=== PATIENT | male | born 1985 | race Two or more races ===

== ENCOUNTER 2020-08-12 15:26 | Outpatient (CLI) | payer BC, SELFPAY ==
[2020-08-12 16:02] LABS: Basophils Percent Auto 0.3 % (0.2-1.2); Eosinophils Absolute Auto 0.2 K/mm3 (0-0.3); Eosinophils Percent Auto 2.5 % (0-4.4); Hematocrit 42.2 % (42.0-52.0); Hemoglobin 14.4 g/dL (14.0-18.0); Immature Granulocyte Absolute 0.03 K/mm3 (0.00-0.031); Immature Granulocyte Percent A 0.5 % (0-0.5); Lymphocytes Absolute Auto 2.01 K/mm3 (0.9-3.2); Lymphocytes Percent Auto 31.3 % (18.3-44.2); Mean Corpuscular HGB Conc 34.1 g/dl (32-36); Mean Corpuscular Hemoglobin 29.6 pg (26-34); Mean Corpuscular Volume 86.7 fl (80-100); Mean Platelet Volume 8.9 fl (7.4-10.4); Monocytes Absolute Auto 0.6 K/mm3 (0.1-0.6); Monocytes Percent Auto 9.8 % (2.6-8.5); Neutrophils Absolute Auto 3.6 K/mm3 (1.3-6.7); Neutrophils Percent Auto 55.6 % (45.5-73.1); Platelet Count Result 245 k/mm3 (150-375); Red Blood Count 4.87 M/mm3 (4.6-6.20); Red Cell Distribution Width 13.6 % (11.5-14.5); White Blood Count 6.4 K/mm3 (4.5-10.0)
[2020-08-12 16:08] LABS: Add Urine Microscopic? YES; Appearance Urine Clear (Clear); Bilirubin Urine Negative (Negative); Blood Urine Negative (Negative); Color Urine Yellow (Yellow); Glucose Urine UA Negative (Negative); Ketones Urine Negative (Negative); Leukocyte Esterase Ur Negative LEU/UL (NEGATIVE); Mucus Urine Rare /lpf; Nitrate Urine Negative (Negative); Protein Urine Negative (Negative); RBC Urine 0-2 /hpf (0-2); Specific Grav Ur 1.016 (1.001-1.035); Squamous Epithelial Cell Urine Rare /hpf (Few); WBC Urine 0-3 /hpf (0-3)
[2020-08-12 16:18] LABS: Alanine Aminotransferase 27 U/L (4-50); Albumin Level 4.4 g/dL (3.5-5.1); Alkaline Phosphatase 55 U/L (38-126); Amylase 59 U/L (30-110); Anion Gap 7 mmol/L (8-16); Aspartate Amino Transferase 31 U/L (17-59); Bilirubin,Total 0.3 mg/dL (0.2-1.3); Blood Urea Nitrogen 14 mg/dL (9-20); Calcium 8.7 mg/dL (8.4-10.2); Carbon Dioxide 28 mmol/L (22-30); Chloride 103 mmol/L (98-107); Estimated Glomerular Filt Rate > 60; Glucose 84 mg/dL (75-110); Lipase 51 U/L (23-300); Sodium 138 mmol/L (137-145)
== END 2020-08-12 15:27 | disposition home or self-care (01) ==
LOC: ANHLAB 15:29
PROVIDERS: PCP Family Medicine; Visit Provider Physician Assistant
DX: R10.9 Unspecified abdominal pain (principal); R11.2 Nausea with vomiting, unspecified
CPT/HCPCS: 36415; 80053; 81001; 82150; 83690; 85025; 87086

== ENCOUNTER → 2021-03-16 14:42 | Outpatient (CLI) | payer BC, SELFPAY ==
--- NOTE | ~2021-03-16 | XR_ITS ---
XR shoulder RT min 2V 03/16/2021 15:01 INDICATION: Right shoulder pain PROCEDURE: 4 views right shoulder COMPARISON: No prior studies for comparison. FINDINGS: Fracture, dislocation or subluxation is not identified. The soft tissues appear within norm al limits. No foreign bodies are identified. IMPRESSION: 1: NO ACUTE BONE OR JOINT ABNORMALITY IDENTIFIED. Reviewed, dictated and finalized at location A.
== END ==
PROVIDERS: PCP Family Medicine; Visit Provider Physician Assistant
DX: M25.511 Pain in right shoulder (principal)
CPT/HCPCS: 73030

== ENCOUNTER 2021-04-30 13:27 | Outpatient (CLI) | payer BC, SELFPAY ==
--- NOTE | ~2021-04-30 | MR_ITS ---
EXAMINATION: MR shoulder RT wo con DATE: 04/30/2021 14:54 INDICATION: Right shoulder pain TECHNIQUE: Magnetic resonance imaging (MRI) of the right shoulder was performed without intravenous c ontrast. Sequences included axial PD-weighted FS FSE, coronal oblique PD-weighted FS FSE, coronal obl ique T2-weighted FS FSE, sagittal PD-weighted FS FSE, and sagittal T1-weighted SE. COMPARISON: None. FINDINGS: Coracoacromial arch: The acromion undersurface is flat in morphology (type I). The coracoacromial ligament is normal. Mini mal acromioclavicular osteoarthritis. Rotator cuff: Mild supraspinatus tendinopathy with small deep partial-thickness articular sided tear at the superio r facet footplate of the supraspinatus tendon which measures only 2-3 mm AP but which involves at nini st two thirds of the tendon thickness. The infraspinatus, teres minor and subscapularis tendons are n ormal. Normal rotator cuff muscle bulk and signal. Biceps tendon, glenoid labrum and glenohumeral cartilage: Long head of the biceps tendon is normal. Glenoid labrum is normal. Glenohumeral cartilage is normal. Fluid: There is virmm-mo-vyldojfg amount fluid in the long head biceps tendon sheath which is disproportiona te to the physiologic amount of fluid in the glenohumeral joint space consistent with mild bicipital tenosynovitis. No loose osteochondral bodies. Small amount of fluid in the subacromial/subdeltoid bur sa consistent with mild bursitis. Bones: Normal marrow signal with no edema, fracture or pathologic marrow replacing process. IMPRESSION: 1. . Supraspinatus tendinopathy with very small but deep bursal sided tear at the distal insertion. 2. Mild subacromial/subdeltoid bursitis. 2. Mild bicipital tenosynovitis. Reviewed, dictated and finalized at location A. IMPRESSION: 1. . Supraspinatus tendinopathy with very small but deep bursal sided tear at t he distal insertion. 2. Mild subacromial/subdeltoid bursitis. 2. Mild bicipital tenosynovitis.
== END 2021-04-30 13:28 | disposition home or self-care (01) ==
PROVIDERS: PCP Family Medicine; Visit Provider Nurse Practitioner Family
DX: M75.51 Bursitis of right shoulder (principal); M75.21 Bicipital tendinitis, right shoulder
CPT/HCPCS: 73221

== ENCOUNTER 2021-06-01 02:06 | Day surgery (SDC) | payer BC, SELFPAY ==
[2021-05-25 13:06] VITALS: BMI 21.9
--- NOTE | 2021-05-31 11:08 | P.PNAN_ITS ---
Anes - Initial Pre Proc Eval Procedure: Operation Date: 06/01/21 13:30 Proposed Procedures p Right Shoulder Arthroscopic Rotator Cuff Repair with Subacromial Decompression - Víctor Rod MD Date/Time: 05/31/21 11:08 Surgeon: Víctor Rod MD Pre Op Diagnosis: partial right rotator cuff tear Patient Data Age: 35 Gender: M Height: 1.7 m Weight: 63.6 kg Allergies Allergy/AdvReac Type Severity Reaction Status Date / Time No Known Allergies Allergy Verified 06/01/21 12:03 Home Medications Medication Instructions Recorded Confirmed Type hydrocodone 5 mg-acetaminophen 325 1 tablet PO Q4-6H PRN #15 tablet 05/13/21 06/01/21 Rx mg tablet MDD 6 Patient hx anesthesia problems: none Family hx anesthesia problems: none [facility] Past Medical History Medical History Depression History of suicide attempt Partial tear of right rotator cuff Smoker Surgical History Surgical History History of tonsillectomy (~1991) Social History Social History Smoking packs per day: 0.5 Smoking cigarettes per day: 10.0 Years smoked: 10 Smoking pack-years: 5.00 Smoking status: Current every day smoker Tobacco type: cigarettes Alcohol intake: current Drinks per week: 1 Substance use: current Substance use type: marijuana Other substance usage details: Daily Last use: yesterday Living arrangements: with family Gender identity (if verbalized by the patient): Male Spiritual care concerns: No Anes - Eval Final PreProcedure Day of Procedure 05/31/21 11:08 Patient weight: normal Heart: regular rate and rhythm Lungs: clear to auscultation and normal air movement Airway: Mallampati scale class II Neurological: alert and oriented Last oral intake: >/= 8 hours ASA classification: II Emergent: no Anesthetic plan: proceed Anesthesia type and monitoring: general LMA and ETT Informed Consent: The patient's anesthetic plan and its attendant risks and benefits were discussed with the patient/family/POA. Questions were solicited and answers provided to the satisfaction of the patient/family/POA.
[2021-06-01] VITALS (9 sets, daily range): BP systolic 94–115; BP diastolic 56–88; PULSE 60–76; RESP 12–20; TEMP 36.2–36.5; O2SAT 98–100; BMI 22.0
--- NOTE | 2021-06-01 10:13 | WPDHPUPDATE1 ---
History and Physical Update Update Date/Time: 06/01/21 10:13 History and Physical has been reviewed, including an updated exam of the patient. There are NO changes in the patient's condition. Risks, benefits, and alternatives have been discussed and questions answered. Patient agrees to proceed with procedure.
[2021-06-01] MEDS: ACETAMINOPHEN 500 MG TABLET 1000 MG PO (12:11)
[2021-06-01] MEDS: LACTATED RINGERS 1,000 ML 30 ML IV CONT ×2 (12:11→14:36)
[2021-06-01] MEDS: KETOROLAC 15 MG/ML VIAL (*BKC) IV PUSH (12:11)
--- NOTE | 2021-06-01 12:13 | WPDANESPNB ---
Anes - Peripheral Nerve Block Date/Time: 06/01/21 12:13 I have discussed with the patient/family/POA the placement of a peripheral nerve block for post-operative pain management, including associated risks, benefits, complications, and side effects. Alternative methods of post-operative analgesia were detailed. Questions were solicited and answers provided to the satisfaction of the patient/family/POA. Time-Out: A pre-procedural Time-Out was completed immediately before starting the procedure and confirmed: Patient Identification, Site, Procedure, Patient Position and the Availability of Requisite Equipment. Clinical Indications: Acute post-operative pain management requested by the operative surgeon. Nerve Block Insertion Note Anes-nerve block: supraclavicular right Patient position: supine Skin prep: chlorhexidine Needle: 22 gauge, stimulating, insulated echogenic needle. Needle length: 80 mm Technique: ultrasound (in plane) Injectate: bupivacaine 0.5% with epi 5 mcg/ml (20cc) Observations: tolerated well Complications: none Procedure start time:: 1225 Procedure end time:: 1230
[2021-06-01] MEDS: ceFAZolin 2 GM/D5W 50 ML 2 GM/50 ML BAG IVPB (12:33)
--- NOTE | 2021-06-01 14:25 | W.PM.PROC2 ---
Procedure Note - Detailed Date of Procedure 06/01/21 Pre-op Diagnosis 1. Partial, bursal side, right rotator cuff tear 2. Impingement syndrome Post-op Diagnosis same Procedure Performed 1. Arthroscopic rotator cuff repair 2. Arthroscopic subacromial decompression Surgeon Víctor Rod MD [employer] Employee Doreen Szymanski PA-C Anesthesia general and regional ( interscalene block) Indications Painful high-grade bursal sided tear. [place] a pop several months ago. Findings High-grade bursal sided tear very anterior. The articular side appeared normal. No other significant glenohumeral findings. Very large subacromial spur, type 3. Single, all-suture triple loaded anchor with modified Santy-Tashi suture. Description of Procedure Preoperative antibiotics were given. An interscalene block was administered in the preoperative area. The patient was bought brought to the operating room. A general anesthetic was administered. The patient was carefully positioned in the beach chair position. The head and neck were carefully positioned. The non operative extremity was also carefully positioned. The shoulder was prepped and draped in the usual sterile fashion. Examination was performed. Standard posterior and anterior arthroscopic portals were established. Inflow achieved with the arthroscopic pump using saline and epinephrine. The glenohumeral joint was carefully inspected. The articular cartilage in labrum were normal. The articular rotator cuff and subscapularis were normal as well as the biceps tendon.. Attention was turned to the subacromial space. A complete bursectomy was performed. The bursa was quite thickened and hyperemic. The anterior bursal side tear was identified easily. The rotator cuff and footprint were lightly debrided. An acromioplasty was performed. The tear configuration was carefully assessed. It was felt that a single anchor with a horizontal mattress suture combined with 2 simple central sutures would be optimal. The configuration was quite angulo. The repair appeared anatomic. The sutures were tied arthroscopically. The arthroscopic instruments were removed. The wounds were closed with 3-0 Monocryl subcuticular suture and steri strips. There were no complications. A sling was applied and the patient brought to the recovery room. Physician digital marketing assistant, Doreen Lopez PA-C, required for surgery; including patient positioning, draping, arthroscopic camera operation, maintaining instrument position, suture retrieval, wound closure, and dressing and sling placement. Implants Alex iconix all suture, 2.8 mm triple loaded anchor. Estimated Blood Loss 10 Pathology none sent Complications No immediate complications Condition stable Disposition PACU
== END 2021-06-01 16:01 | disposition home or self-care (01) ==
PROVIDERS: PCP Family Medicine; Visit Provider Orthopaedic Surgery
PROC: (CPT 29805; principal; 2021-06-01 13:30)
DX: S46.011A Strain of muscle(s) and tendon(s) of the rotator cuff of right shoulder, initial encounter (principal); X50.0XXA Overexertion from strenuous movement or load, initial encounter; G89.18 Other acute postprocedural pain; F17.210 Nicotine dependence, cigarettes, uncomplicated; F12.90 Cannabis use, unspecified, uncomplicated
CPT/HCPCS: 29827; 29826; 64415; A9270; J0690; J1100; J1170; J1885; J2250; J2370; J2405; J2704; J3010; J7120

== ENCOUNTER 2021-11-30 00:13 | Day surgery (SDC) | payer BC, SELFPAY ==
[2021-11-24 14:18] VITALS: BMI 22.7
--- NOTE | 2021-11-24 14:20 | SUR.PREOP ---
Report to the Outpatient Waiting Room, entrance under the green pavilion located off [facility], at time _1200 on date _11/30/21 . OR Time: _1400. - You and your visitor will be asked a series of questions to screen for COVID 19 for your protection. - A mask is required within the hospital. Preoperative COVID Testing Requirements: No COVID Test needed if: (proof is required; if not received patient will have Rapid Test prior to entry) - Patient has received COVID Vaccine at least 14 days prior to procedure date or - Patient has positive COVID test result within last 90 days of surgery date. COVID Test needed if above criteria is not met If not COVID vaccinated a COVID test must be conducted within 72 hours of surgery and patient is asked to isolate self from time of testing until procedure. You will go to the [employer] for your COVID testing. The [employer] [facility] is located at the corner of [address] [facility]. You will only be called if COVID results are positive and your surgeon may reschedule your elective surgery date. Patients may have clear liquids (water, carbonated beverages, clear teas, apple juice) until 3 hours prior to surgery with a maximum of 20 ounces. - No food from midnight until time of surgery - Infants may have breast milk until 4 hours before surgery, formula 6 hours prior to surgery. - Children will be allowed to drink immediately following surgery. If applicable, please bring a bottle or sippy cup to assist with drinking. Juice, water, soda, and popsicles are readily available. For infants on formula, please bring formula the day of surgery. Pacifiers are allowed. Take the following medications with a SIP of water the morning of surgery: n/a Medications to discontinue per physician n/a Date to take last dose__n/a Please no make-up, nail mohawk, hairspray, perfume, deodorant, or body powder the day of surgery. No jewelry (including any body piercings) or valuables the day of surgery, leave them at home. Please take a shower or bath the night before, or the morning of, surgery with an antibacterial soap. Wear comfortable, loose fitting clothing. Children are encouraged to wear pajamas. - Jewelry must be removed prior to entering the operating room. Rings and piercings that are not removed may be cut off. - The hospital will not accept responsibility for valuables. - Please leave all valuables, including medications, at home the day of surgery. If you are going home after surgery, a licensed local bulk driver must drive you home. - NO public transportation without another adult. - We recommend that an adult stay with you for 24 hours following discharge. - We also recommend that you do not drive, make important decision, drink alcoholic beverages, or take any drugs that were not prescribed by your health care provider for at least 24 hours after your discharge time. For Pediatric surgeries, we recommend two adults accompany the child home (only one inside the building at this time). One visitor will be allowed to accompany the patient into the hospital. Patients visitor will be instructed to remain with patient at all times or leave the building. We will allow the visitor to come back to the postoperative area when patient is ready. Follow any additional instructions given to you from your surgeon. Telephone instructions given to alcides parker and asked if any additional questions and then verbalized understanding. Patient advised to call surgeon office or pre surgery nurse liaison [phone] if any additional questions.
[2021-11-30] VITALS (7 sets, daily range): BP systolic 101–122; BP diastolic 49–76; PULSE 66–104; RESP 12–24; TEMP 36.2–36.9; O2SAT 98–100; BMI 22.6
--- NOTE | 2021-11-30 07:19 | WPDHPUPDATE1 ---
History and Physical Update Update Date/Time: 11/30/21 07:19 History and Physical has been reviewed, including an updated exam of the patient. There are NO changes in the patient's condition. Risks, benefits, and alternatives have been discussed and questions answered. Patient agrees to proceed with procedure.
--- NOTE | 2021-11-30 13:04 | WPDANESEPPF ---
Anes - Initial Pre Proc Eval Procedure: Operation Date: 11/30/21 14:00 Proposed Procedures p Arthroscopic Capsular Release with Manipulation of Right Shoulder - Víctor Rod MD Date/Time: 11/30/21 13:04 Surgeon: Víctor Rod MD Pre Op Diagnosis: Contracture Rt Shoulder Patient Data Age: 36 Gender: M Height: 1.7 m Weight: 65.9 kg Allergies Allergy/AdvReac Type Severity Reaction Status Date / Time No Known Allergies Allergy Verified 11/29/21 09:20 Home Medications Medication Instructions Recorded Confirmed Type No Home Medications 08/12/21 11/24/21 History Patient hx anesthesia problems: none Family hx anesthesia problems: none Results Review: All pre-operative results and documents have been reviewed as part of the pre-operative evaluation. FOR[facility]LY [facility] Past Medical History Medical History Depression History of suicide attempt Partial tear of right rotator cuff Smoker Surgical History Surgical History History of repair of right rotator cuff (~06/01/21) w/Subacromial Decompression History of tonsillectomy (~1991) Social History Social History Smoking packs per day: 0.5 Smoking cigarettes per day: 10.0 Years smoked: 10 Smoking pack-years: 5.00 Smoking status: Current every day smoker Tobacco type: cigarettes Additional smoking assessment comments: 8 cgarettes a day x15 years Alcohol intake: current Drinks per week: 1 Substance use: current Substance use type: marijuana Other substance usage details: daily smoking Last use: yesterday Living arrangements: with family Gender identity (if verbalized by the patient): Male Spiritual care concerns: No Anes - Eval Final PreProcedure Day of Procedure 11/30/21 13:04 Patient weight: normal Heart: regular rate and rhythm Lungs: clear to auscultation and normal air movement Airway: Mallampati scale class II Neurological: alert and oriented Last oral intake: >/= 8 hours ASA classification: II Emergent: no Anesthetic plan: proceed Anesthesia type and monitoring: general ETT and standard monitoring Results Review: All pre-operative results and documents have been reviewed as part of the pre-operative evaluation. Informed Consent: The patient's anesthetic plan and its attendant risks and benefits were discussed with the patient/family/POA. Questions were solicited and answers provided to the satisfaction of the patient/family/POA.
--- NOTE | 2021-11-30 13:05 | WPDANESPNB ---
Anes - Peripheral Nerve Block Date/Time: 11/30/21 13:05 I have discussed with the patient/family/POA the placement of a peripheral nerve block for post-operative pain management, including associated risks, benefits, complications, and side effects. Alternative methods of post-operative analgesia were detailed. Questions were solicited and answers provided to the satisfaction of the patient/family/POA. Time-Out: A pre-procedural Time-Out was completed immediately before starting the procedure and confirmed: Patient Identification, Site, Procedure, Patient Position and the Availability of Requisite Equipment. Clinical Indications: Acute post-operative pain management requested by the operative surgeon. Nerve Block Insertion Note Anes-nerve block: interscalene right Patient position: supine Skin prep: chlorhexidine Needle: 22 gauge, stimulating, insulated echogenic needle. Needle length: 50 mm Technique: ultrasound Injectate: bupivacaine 0.5% with epi 5 mcg/ml (30cc- no epi) Observations: tolerated well Complications: none Procedure start time:: 1336 Procedure end time:: 1340
[2021-11-30] MEDS: ACETAMINOPHEN 500 MG TABLET 1000 MG PO (13:22)
[2021-11-30] MEDS: KETOROLAC 15 MG/ML VIAL (*BKC) IV PUSH (13:29)
[2021-11-30] MEDS: LACTATED RINGERS 1,000 ML 30 ML IV CONT ×2 (13:30→15:30)
[2021-11-30] MEDS: ceFAZolin 2 GM/D5W 50 ML 2 GM/50 ML BAG IVPB (13:46)
--- NOTE | 2021-11-30 15:13 | P.OP_ITS ---
Procedure Note - Detailed Date of Procedure 11/30/21 Pre-op Diagnosis 1. Contracture Rt Shoulder. 2. Status post arthroscopic bursal side rotator cuff repair Post-op Diagnosis Same Procedure Performed Arthroscopic capsular release, with lysis of adhesions in the subdeltoid space, and manipulation under anesthesia. Right shoulder. Surgeon Víctor Rod MD Sewer And Inspector Doreen Szymanski PA-C Anesthesia General and Regional Indications Persistent severe stiffness and functional limitation 6 months after arthroscopic high-grade bursal side rotator cuff repair. Findings Elevation 130? preoperatively and 150 post. External rotation 45 pre and 65 post. Internal rotation 20? pre and 45? post. Significant contracture through the rotator interval and subscapularis. The anterior capsule although stuck to the subscapularis appeared quite normal. The posterior and inferior capsule were released. The articular rotator cuff appeared normal. The biceps and labrum were normal. There was not a significant capsulitis. The bursa was very thickened with significant proliferative tissue. The lateral bursa at the deltoid was foreshortened and attached without significant freedom for the deltoid. This was debrided and rel eased. Care was taken to release anteriorly as well. The suture repair was intact with slight prominence of the suture knot which was debrided down. Description of Procedure Preoperative antibiotics were given. An interscalene block was performed. The patient was brought to the operating room, and carefully placed in the lateral decubitus position with the grijalva bag. The head neck were carefully positioned. 10 pounds of longitudinal traction was applied to the arm after sterile prep and drape. Examination under anesthesia revealed limitation in movement as described above. Inspection revealed minimal capsulitis. The articular cartilage was intact. The labrum and biceps were intact. The rotator cuff appeared normal. An accessory anterosuperior cannula was created. The tissue shaver and hook radiofrequency wand were used to remove the rotator interval tissue carefully. The tissue about the biceps and sling were carefully preserved. The more inferior tissues appeared quite normal except for being tethered to the subscapularis. This was released anterior to the middle glenohumeral ligament. The camera was switched to the anterior portal. The posterior capsule was then resected in a similar fashion. Particularly care was taken in the axillary pouch. At this point the glenohumeral articulation was much less stiff. The arthroscopic instruments were removed. Inspection of the subacromial bursa demonstrated significant thickening of the bursa throughout. There was some tethering of the subdeltoid fascia. Careful release was performed and the tissue appeared much more normal. The bursal sided supraspinatus cuff repair was intact and the suture knot was carefully debulked. Manipulation was then performed in the typical manner. Motion was greatly improved. The wounds were closed with interrupted 4-0 Monocryl suture followed by Steri-Strips. The patient was extubated and brought to recovery room in sta ble condition. There were no complications. Physician assistant federal public defender, Doreen Lopez PA-C, required for surgery; including patient positioning, draping, arthroscopic camera operation, maintaining instrument position, wound closure, and dressing and sling placement. Estimated Blood Loss 10 Complications No immediate complications Condition Stable Disposition PACU
== END 2021-11-30 17:20 | disposition home or self-care (01) ==
PROVIDERS: PCP Family Medicine; Visit Provider Orthopaedic Surgery
PROC: (CPT 29805; principal; 2021-11-30 14:00)
DX: M24.511 Contracture, right shoulder (principal); Z98.890 Other specified postprocedural states; G89.18 Other acute postprocedural pain; F17.290 Nicotine dependence, other tobacco product, uncomplicated; F12.90 Cannabis use, unspecified, uncomplicated
CPT/HCPCS: 29825; 64415; A4565; A9270; J0690; J1100; J1885; J2250; J2370; J2405; J2710; J3010; J7120

== ENCOUNTER 2022-03-21 08:38 | Emergency (ER) | payer BC, SELFPAY ==
--- NOTE | ~2022-03-21 | XR_ITS ---
EXAMINATION: XR finger 2nd LT min 2V DATE: 03/21/2022 09:00 INDICATION: Left hand second digit injury. TECHNIQUE: 4 views of left hand second digit were obtained. COMPARISON: None. FINDINGS: There is a comminuted fracture of tuft of second distal phalanx. Joint spaces are normal. IMPRESSION: 1. Comminuted fracture of tuft of second distal phalanx. Reviewed, dictated and finalized at location A.
[2022-03-21 08:48] VITALS: BP 134/85; PULSE 73; RESP 16; TEMP 36.2; O2SAT 100
--- NOTE | 2022-03-21 08:49 | ED.WOUNDLAC ---
HPI - Wound/Laceration General Chief Complaint: Wound/Laceration Stated Complaint: cut left 2nd finger Source: patient Mode of arrival: ambulatory Limitations: no limitations History of Present Illness HPI narrative: 36 y/o male presented for c/o injury to left index finger today. Endorses bleeding around the nail and possibly smashed the finger while using table saw on wooden board, but does not know the exact mechanism of injury. Took ibuprofen [place]. rates pain 6/10, throbbing. Did not clean after injury. Continues with bleeding. Denies numbness, tingling or weakness of the hand.Right hand dominant. Related Data Allergies Allergy/AdvReac Type Severity Reaction Status Date / Time No Known Allergies Allergy Verified 03/21/22 08:56 Review of Systems Review of Systems: CONSTITUTIONAL: Denies body aches, fever, chills CARDIOVASCULAR: Denies chest pain, palpitations, or edema. RESPIRATORY: Denies cough or dyspnea. GASTROINTESTINAL: Denies abdominal pain, nausea, vomiting, or diarrhea. SKIN: Denies rash, itching MUSCULOSKELETAL: left index finger injury, bruising, bleeding NEUROLOGIC: Denies headache, numbness, tingling, or weakness. All systems reviewed & are unremarkable except as noted in HPI and below PMFSH Past Medical History Medical History Depression History of suicide attempt Partial tear of right rotator cuff Smoker Surgical History Surgical History History of repair of right rotator cuff (~06/01/21) w/Subacromial Decompression History of tonsillectomy (~1991) Social History Social History Smoking packs per day: 0.5 Smoking cigarettes per day: 10.0 Years smoked: 10 Smoking pack-years: 5.00 Smoking status: Current every day smoker Tobacco type: cigarettes Additional smoking assessment comments: 8 cgarettes a day x15 years Alcohol intake: current Drinks per week: 1 Substance use: current Substance use type: marijuana Other substance usage details: daily smoking Last use: yesterday Gender identity (if verbalized by the patient): Male Spiritual care concerns: No Comments At time of signature, I have reviewed and agree with nursing past medical, surgical, social and family history unless otherwise noted. Please see nursing chart for further information. There is no relevant family history pertinent to the presenting complaint Exam Narrative: GENERAL: Well-appearing; appears in pain CHEST: Speaks in full sentences. No respiratory distress. HEART: Regular rate and rhythm. Normal and equal peripheral pulses. EXTREMITIES: Distal aspect of left index with bruising to ulnar side of distal phalanx, active bleeding around nail bed and minimal bruising under nail; approx 4mm irregular superficial laceration to palmar surface of distal phalanx with scattered bruising. 2nd digit has normal sensation, limited range of motion of digit due to pain. No apparent nerve/tendon injury. pulse palpable and equal bilaterally, skin warm, dry, pink. Capillary refill less than 3 seconds. SKIN: Warm, dry, no rash. NEURO: Alert and oriented x3. PSYCH: Normal mood and affect Course Course Emergency Course: Patient is aware of diagnosis, understands and agrees to treatment plan. Anticipatory guidance given. Patient agrees to follow-up as directed and is aware of reasons to seek care at the emergency department. Portions of this record may have been created with voice recognition software Level of Care: Express Care Visit Vital Signs Vital signs: Vital Signs Temperature 97.1 F L 03/21/22 08:48 Pulse Rate 73 03/21/22 08:48 Respiratory Rate 16 03/21/22 08:48 Blood Pressure 134/85 03/21/22 08:48 Pulse Oximetry 100 03/21/22 08:48 Oxygen Delivery Room Air 03/21/22 08:48 Temperature 97.1 F L 03/21/22 08:48 Pulse Rate 73 03/21/22 08:48 Respiratory Rate
[2022-03-21] MEDS: TETANUS,DIPHTHERIA,AC PERTUSSIS ADULT (0.5 ML) BOOSTRIX IM (10:15)
[2022-03-21] MEDS: cefTRIAXone 500 MG, LIDOCAINE HCL 1% LOCAL INJ 1 ML IM (10:17)
== END 2022-03-21 10:45 | disposition home or self-care (01) ==
PROVIDERS: Emergency Provider Nurse Practitioner Family; PCP Family Medicine
DX: S62.637A Displaced fracture of distal phalanx of left little finger, initial encounter for closed fracture (principal); X58.XXXA Exposure to other specified factors, initial encounter; Z23 Encounter for immunization; F17.210 Nicotine dependence, cigarettes, uncomplicated
CPT/HCPCS: 29130; 73140; 90471; 90715; 96372; 99214; G0463; J0696

== ENCOUNTER 2024-08-29 15:50 | Outpatient (CLI) | payer OTHER, SELFPAY ==
--- NOTE | ~2024-08-29 | XR_ITS ---
EXAMINATION: XR foot LT min 3V DATE: 08/29/2024 16:16 INDICATION: Left foot pain. TECHNIQUE: 4 views of left foot were obtained. COMPARISON: None. FINDINGS: There is mild hallux valgus. No fracture. There is mild osteoarthritis of first metatarsoph alangeal joint. IMPRESSION: 1. Mild osteoarthritis of first metatarsophalangeal joint. 2. Mild hallux valgus. Reviewed, dictated and finalized at location A. [employer]
== END 2024-08-29 15:51 | disposition home or self-care (01) ==
LOC: MICIMG 15:51
PROVIDERS: PCP Family Medicine; Visit Provider Physician Assistant Medical
DX: M19.072 Primary osteoarthritis, left ankle and foot (principal); M20.12 Hallux valgus (acquired), left foot
CPT/HCPCS: 73630

== ENCOUNTER 2025-03-03 13:30 | Outpatient (CLI) | payer OTHER, SELFPAY ==
[2025-03-03 13:52] LABS: Hematocrit 45.1 % (42.0-52.0); Hemoglobin 14.6 g/dL (14.0-18.0); Mean Corpuscular HGB Conc 32.4 g/dl (32-36); Mean Corpuscular Hemoglobin 28.3 pg (26-34); Mean Corpuscular Volume 87.6 fl (80-100); Mean Platelet Volume 8.9 fl (7.4-10.4); Platelet Count Result 298 k/mm3 (150-375); Red Blood Count 5.15 M/mm3 (4.6-6.20); Red Cell Distribution Width 14.1 % (11.5-14.5); White Blood Count 8.6 K/mm3 (4.5-10.0)
[2025-03-03 14:06] LABS: Alanine Aminotransferase 13 U/L (6-50); Albumin Level 4.4 g/dL (3.5-5.1); Alkaline Phosphatase 49 U/L (38-126); Anion Gap 5 mmol/L (4-12); Aspartate Amino Transferase 22 U/L (17-59); Bilirubin,Total 0.5 mg/dL (0.2-1.3); Blood Urea Nitrogen 12 mg/dL (9-20); Calcium 8.8 mg/dL (8.4-10.2); Carbon Dioxide 26 mmol/L (22-30); Chloride 108 mmol/L (98-107); Estimated Glomerular Filt Rate > 60; Glucose 91 mg/dL (65-110); Sodium 139 mmol/L (137-145); Total Protein 7.1 g/dL (6.3-8.2); Uric Acid 4.9 mg/dL (3.5-8.5)
== END 2025-03-03 13:31 | disposition home or self-care (01) ==
PROVIDERS: Family Medicine; PCP Family Medicine
DX: Z00.00 Encounter for general adult medical examination without abnormal findings (principal); M79.672 Pain in left foot; M10.9 Gout, unspecified
CPT/HCPCS: 36415; 80053; 84550; 85027